=== PATIENT | female | born 1950 | race Caucasian/White ===

== ENCOUNTER 2021-01-06 02:05 | Inpatient (IN) ==
[2021-01-06] MEDS ORDERED: Ondansetron 4 MG/2 ML VIAL IVP PRN (05:46)
[2021-01-06] MEDS ORDERED: Naloxone 0.4 MG/ML INJ IVP PRN (05:46)
[2021-01-06] MEDS ORDERED: Melatonin 3 MG TABLET PO PRN (05:46)
[2021-01-06] MEDS ORDERED: Acetaminophen 325 MG TABLET PO PRN (05:46)
[2021-01-06] MEDS ORDERED: Benzonatate 100 MG CAPSULE PO PRN (05:49)
[2021-01-06 07:08] LABS: Basophils % 0.2 %; Hematocrit 40.4 % (35.3-44.9); Hemoglobin 12.9 g/dL (11.5-15.4); Immature Granulocytes % 0.4 % (0-4); Lymphocytes # 0.4 K/mcL (0.6-4.6); Lymphocytes % 7.9 %; Mean Corpuscular HGB Conc 31.9 g/dL (31.6-35.5); Mean Corpuscular Hemoglobin 28.1 pg (28.0-33.3); Mean Platelet Volume 10.2 fL (9.4-12.4); Monocytes # 0.1 K/mcL (0.0-1.3); Monocytes % 2.4 %; Neutrophils # 4.8 K/mcL (1.6-8.9); Platelet Count 179 K/mcL (140-400); Red Blood Count 4.59 M/mcL (3.82-4.97); Segmented Neutrophils % 89.1 %; White Blood Count 5.3 K/mcL (4.3-11.1)
[2021-01-06 07:10] LABS: INR 1.2; Prothrombin Time 13.6 Seconds (9.4-12.1)
[2021-01-06] MEDS: Ipratropium 1 PUFF INHALER IH SCH ×5 (07:57→23:37)
[2021-01-06 08:01] LABS: Alanine Aminotransferase 15 Units/L (7-52); Albumin 3.7 g/dL (3.5-5.7); Albumin/Globulin Ratio 1.2 (1.1-2.2); Alkaline Phosphatase 59 Units/L (34-104); Aspartate Amino Transferase 24 Units/L (13-39); BUN/Creatinine Ratio 20 (6-26); Bilirubin,Total 0.6 mg/dL (0.3-1.0); Blood Urea Nitrogen 16 mg/dL (8-23); Calcium 8.2 mg/dL (8.6-10.3); Carbon Dioxide 16 mEq/L (23-29); Chloride 105 mEq/L (98-107); Globulin 3.2 g/dL (2.4-3.5); Glucose 167 mg/dL (70-105); Magnesium 2.1 mg/dL (1.6-2.6); Osmolality,Calculated 283 (280-300); Phosphorous 2.6 mg/dL (2.7-4.5); Potassium 4.2 mEq/L (3.5-5.1); Sodium 134 mEq/L (136-145); Total Protein 6.9 g/dL (6.4-8.9); eGFR For African Americans > 60 (> 60); eGFR For Non-African Americans > 60 (> 60)
[2021-01-06] MEDS ORDERED: Remdesivir 200 MG in 0.9 % Sodium Chloride 100 ML IVPB ONE (08:09)
[2021-01-06] MEDS: *HR* Heparin 5,000 UNIT/ML VIAL SQ SCH (18:10)
[2021-01-07] MEDS: Ipratropium 1 PUFF INHALER IH SCH ×5 (04:01→16:24)
[2021-01-07] MEDS: *HR* Heparin 5,000 UNIT/ML VIAL SQ SCH ×2 (05:24→18:11)
[2021-01-07 07:51] LABS: Hematocrit 41.3 % (35.3-44.9); Hemoglobin 13.2 g/dL (11.5-15.4); Mean Corpuscular Hemoglobin 27.7 pg (28.0-33.3); Mean Corpuscular Volume 86.6 fL (83.0-100.0); Mean Platelet Volume 10.2 fL (9.4-12.4); Platelet Count 210 K/mcL (140-400); Red Blood Count 4.77 M/mcL (3.82-4.97); Red Cell Distribution Width 15.8 % (11.5-14.5); White Blood Count 7.6 K/mcL (4.3-11.1)
[2021-01-07 08:08] LABS: Albumin 3.4 g/dL (3.5-5.7); Albumin/Globulin Ratio 1.1 (1.1-2.2); Bilirubin,Direct 0.1 mg/dL (0.0-0.2); Bilirubin,Indirect 0.3 mg/dL (0.0-1.0); Bilirubin,Total 0.4 mg/dL (0.3-1.0); Total Protein 6.4 g/dL (6.4-8.9)
[2021-01-07 08:10] LABS: BUN/Creatinine Ratio 29 (6-26); Blood Urea Nitrogen 23 mg/dL (8-23); Calcium 8.4 mg/dL (8.6-10.3); Carbon Dioxide 23 mEq/L (23-29); Chloride 106 mEq/L (98-107); Glucose 212 mg/dL (70-105); Magnesium 2.1 mg/dL (1.6-2.6); Osmolality,Calculated 290 (280-300); Potassium 3.7 mEq/L (3.5-5.1); Sodium 135 mEq/L (136-145); eGFR For African Americans > 60 (> 60); eGFR For Non-African Americans > 60 (> 60)
[2021-01-07] MEDS ORDERED: atenoloL 50 MG TABLET PO SCH (09:00)
[2021-01-07] MEDS: Nystatin POWDER 30 GM BOTTLE TP SCH ×2 (10:18→21:23)
[2021-01-07] MEDS: Remdesivir 100 MG in 0.9 % Sodium Chloride 100 ML IVPB SCH (10:19)
[2021-01-07] MEDS: Topiramate 25 MG TABLET PO SCH ×2 (16:07→21:22)
[2021-01-07] MEDS: Loratadine 10 MG TABLET PO SCH (16:07)
[2021-01-07] MEDS: amLODIPine 5 MG TABLET PO SCH (16:07)
[2021-01-07] MEDS ORDERED: *HR* Dextrose 50 % in Water (Vial) 50 ML VIAL IVP PRN (16:26)
[2021-01-07] MEDS ORDERED: D5% in Water 1,000 ML IVC PRN (16:26)
[2021-01-07] MEDS ORDERED: Dextrose Gel 15 GM/37.5 ML TUBE PO PRN ×2 (16:26)
[2021-01-07 18:04] LABS: Estimated Average Glucose 169 mg/dl; Hemoglobin A1C 7.5 %
[2021-01-07] MEDS: Insulin LISPRO 300 UNITS/3 ML VIAL SUBQ SCH ×2 (18:10→21:23)
[2021-01-07] MEDS: rOPINIRole 0.25 MG TABLET PO SCH (21:22)
[2021-01-08] MEDS: Ipratropium 1 PUFF INHALER IH SCH ×7 (00:49→23:57)
[2021-01-08] MEDS ORDERED: *HR* LORazepam 2 MG/ML VIAL IVP ONE (04:44)
[2021-01-08] MEDS: *HR* Enoxaparin 40 MG/0.4 ML SYRINGE SQ SCH (04:57)
[2021-01-08 05:12] LABS: Hematocrit 42.6 % (35.3-44.9); Hemoglobin 13.2 g/dL (11.5-15.4); Mean Corpuscular Hemoglobin 26.7 pg (28.0-33.3); Mean Corpuscular Volume 86.1 fL (83.0-100.0); Mean Platelet Volume 10.6 fL (9.4-12.4); Platelet Count 239 K/mcL (140-400); Red Blood Count 4.95 M/mcL (3.82-4.97); Red Cell Distribution Width 15.9 % (11.5-14.5); White Blood Count 6.9 K/mcL (4.3-11.1)
[2021-01-08 05:56] LABS: BUN/Creatinine Ratio 30 (6-26); Blood Urea Nitrogen 23 mg/dL (8-23); Calcium 8.4 mg/dL (8.6-10.3); Carbon Dioxide 22 mEq/L (23-29); Chloride 107 mEq/L (98-107); Glucose 202 mg/dL (70-105); Osmolality,Calculated 293 (280-300); Potassium 3.7 mEq/L (3.5-5.1); Sodium 137 mEq/L (136-145); eGFR For African Americans > 60 (> 60); eGFR For Non-African Americans > 60 (> 60)
[2021-01-08 05:58] LABS: Albumin 3.4 g/dL (3.5-5.7); Albumin/Globulin Ratio 1.1 (1.1-2.2); Bilirubin,Direct 0.1 mg/dL (0.0-0.2); Bilirubin,Indirect 0.4 mg/dL (0.0-1.0); Bilirubin,Total 0.5 mg/dL (0.3-1.0); Globulin 3.1 g/dL (2.4-3.5); Total Protein 6.5 g/dL (6.4-8.9)
[2021-01-08] MEDS: Insulin LISPRO 300 UNITS/3 ML VIAL SUBQ SCH ×4 (10:15→21:44)
[2021-01-08] MEDS: Aspirin Enteric Coated 325 MG Tablet PO SCH (10:17)
[2021-01-08] MEDS: amLODIPine 5 MG TABLET PO SCH (10:17)
[2021-01-08] MEDS: Topiramate 25 MG TABLET PO SCH ×2 (10:18→21:45)
[2021-01-08] MEDS: Furosemide 20 MG TABLET PO SCH (10:18)
[2021-01-08] MEDS: Loratadine 10 MG TABLET PO SCH (10:18)
[2021-01-08] MEDS: atenoloL 25 MG TABLET PO SCH (10:18)
[2021-01-08] MEDS: Remdesivir 100 MG in 0.9 % Sodium Chloride 100 ML IVPB SCH (10:19)
[2021-01-08] MEDS: Nystatin POWDER 30 GM BOTTLE TP SCH ×2 (10:20→21:45)
[2021-01-08] MEDS: rOPINIRole 0.25 MG TABLET PO SCH (21:45)
[2021-01-09] MEDS: Ipratropium 1 PUFF INHALER IH SCH ×5 (04:12→21:25)
[2021-01-09] MEDS: *HR* Enoxaparin 40 MG/0.4 ML SYRINGE SQ SCH (05:41)
[2021-01-09] MEDS: Topiramate 25 MG TABLET PO SCH ×2 (09:21→21:43)
[2021-01-09] MEDS: amLODIPine 5 MG TABLET PO SCH (09:22)
[2021-01-09] MEDS: Loratadine 10 MG TABLET PO SCH (09:22)
[2021-01-09] MEDS: atenoloL 25 MG TABLET PO SCH (09:22)
[2021-01-09] MEDS: Aspirin Enteric Coated 325 MG Tablet PO SCH (09:22)
[2021-01-09] MEDS: Furosemide 20 MG TABLET PO SCH (09:22)
[2021-01-09] MEDS: Remdesivir 100 MG in 0.9 % Sodium Chloride 100 ML IVPB SCH (09:23)
[2021-01-09] MEDS: Nystatin POWDER 30 GM BOTTLE TP SCH ×2 (09:44→21:43)
[2021-01-09] MEDS: Insulin LISPRO 300 UNITS/3 ML VIAL SUBQ SCH ×4 (09:47→21:49)
[2021-01-09 10:47] VITALS: PULSE 66
[2021-01-09 16:09] VITALS: BP 104/64; TEMP 97.9
[2021-01-09 21:31] VITALS: O2SAT 93
[2021-01-09] MEDS: rOPINIRole 0.25 MG TABLET PO SCH (21:43)
[2021-01-10] MEDS: Ipratropium 1 PUFF INHALER IH SCH (04:30)
== END 2021-01-10 00:30 | disposition home health service (06) | DRG 137 ==
LOC: 3ANU → SUATTDRO 05:13 → MERGE 15:59 → SUATTDRO 15:59
PROVIDERS: ADMIT Family Medicine; ATTEND Internal Medicine